=== PATIENT | male | born 2000 | race Caucasian/White ===

== ENCOUNTER 2021-03-16 05:56 | Emergency (ER) | payer SELFPAY ==
[~2021-03-16] VITALS: Ht 177.8 cm; Wt 79.4 kg
[2021-03-16 06:02] VITALS: BP_SYST 129
[2021-03-16] MEDS: LORazepam 1 MG TABLET PO ONE (06:19)
[2021-03-16] MEDS: ONDANSETRON 4 MG ODT TAB PO ONE (06:19)
[2021-03-16] MEDS: NACL 0.9% 1,000 ML IV ONE (06:35)
[2021-03-16] MEDS: ONDANSETRON HCL 4 MG/2 ML VIAL IVP ONE (06:39)
[2021-03-16] MEDS: LORazepam 2 MG/ML VIAL IVP ONE (06:42)
[2021-03-16 12:46] VITALS: BP_SYST 99
== END 2021-03-16 12:46 | disposition home or self-care (01) ==
LOC: SED 05:56 → EDBD 05:56 → SED 12:46
DX: T40.7X1A Poisoning by cannabis (derivatives), accidental (unintentional), initial encounter (principal); R11.2 Nausea with vomiting, unspecified; Y92.89 Other specified places as the place of occurrence of the external cause
CPT/HCPCS: 93005; 96361; 96374; 96375; 99284; J2060; J2405; J7030; Q0162

== ENCOUNTER 2021-04-06 16:06 | Emergency (ER) | payer OTHER ==
[~2021-04-06] VITALS: Ht 177.8 cm; Wt 73.5 kg
[2021-04-06 16:13] VITALS: BP_SYST 102
[2021-04-06] MEDS ORDERED: DICYCLOMINE HCL 10 MG CAPSULE PO ONE ×2 (19:30→19:45)
[2021-04-06] MEDS ORDERED: KETOROLAC TROMETHAMINE 30 MG VIAL IVP ONE (19:30)
[2021-04-06 19:38] LABS: BASOPHILS % (AUTO) 0.4 % (0.0-2.0); EOSINOPHILS # (AUTO) 0.1 K/uL (0.0-0.4); EOSINOPHILS % (AUTO) 3.1 % (0.0-4.0); HEMATOCRIT 45.9 % (36-54); HEMOGLOBIN 15.8 g/dL (14.0-18.0); LYMPHOCYTES # (AUTO) 1.2 K/uL (1.0-5.5); LYMPHOCYTES % (AUTO) 27.1 % (20.5-51.5); MEAN CORPUSCULAR HEMOGLOBIN 32 pg (27-31); MEAN CORPUSCULAR HGB CONC 34 % (32-36); MEAN CORPUSCULAR VOLUME 94 fL (79.0-98.0); MONOCYTES # (AUTO) 0.7 K/uL (0.0-1.0); MONOCYTES % (AUTO) 16.3 % (1.7-9.3); NEUTROPHILS # (AUTO) 2.3 K/uL (1.8-7.7); NEUTROPHILS % (AUTO) 53.1 % (40.0-70.0); PLATELET COUNT (AUTO) 163 K/uL (130-430); RED CELL DISTRIBUTION WIDTH 12.3 % (9.0-15.0); WHITE BLOOD COUNT (AUTO) 4.4 K/uL (4.8-10.8)
[2021-04-06 19:40] LABS: CALCIUM 9.3 mg/dL (8.4-11.0); CREATININE 0.91 mg/dL (0.55-1.30); POTASSIUM 4.1 mmol/L (3.5-5.1)
[2021-04-06 19:45] LABS: TOTAL BILIRUBIN 1.7 mg/dL (0.0-1.0)
[2021-04-06] MEDS ORDERED: DICYCLOMINE HCL 10 MG/5 ML SOLUTION PO ONE (19:45)
[2021-04-06] MEDS ORDERED: DICY10CA13 PO (20:58)
[2021-04-06 21:30] VITALS: BP_SYST 108
== END 2021-04-06 21:30 | disposition home or self-care (01) ==
LOC: SED 16:06
DX: R10.9 Unspecified abdominal pain (principal); R19.7 Diarrhea, unspecified
CPT/HCPCS: 36415; 80053; 83690; 85025; 96374; 99283; J1885